=== PATIENT | male | born 1995 | race Caucasian/White ===

== ENCOUNTER 2018-05-01 22:05 | Emergency (ER) | payer SELFPAY ==
[~2018-05-01] VITALS: Ht 180.3 cm; Wt 65.0 kg
[~2018-05-01 22:05] MED LIST: BENTYL10 MG PO; BOOSTRIX IM; NAPROSYN500 MG PO; NO HOME MEDS; VENTOLIN HFA IN
[2018-05-01 23:25] LABS: HEMATOCRIT 44.4 % (39.0-50.0); HEMOGLOBIN 15.1 g/dl (14.0-18.0); IMMATURE GRANULOCYTES 0.3 % (0.0-5.0); MEAN CORPUSCULAR HGB 29.6 pG CALC (26.0-32.0); NEUT# 8.71 thou/uL (1.82-7.42); RED BLOOD COUNT 5.1 mill/uL (4.70-6.10); RED CELL DISTRI WIDTH 13.7 % (11.5-15.5)
[2018-05-01 23:30] LABS: MEAN CELL VOLUME 87.1 fL CALC (80.0-100.0)
[2018-05-01 23:33] LABS: ACT PARTIAL THROMBO TIME 28.6 SECONDS (20.0-32.5); INTERNATIONAL NORMALIZED RATIO 0.9 RATIO (0.7-1.3); PROTHROMBIN TIME 10.4 SECONDS (9.0-12.5)
[2018-05-01 23:42] LABS: ALBUMIN 4.1 g/dL (3.2-5.0); ALKALINE PHOSPHATASE 87 u/l (38-126); ANION GAP 12 (6-22 (CALC)); BILIRUBIN, TOTAL 1.1 mg/dL (0.0-1.4); BUN 11 mg/dL (9-20); BUN/CREATININE RATIO 15 (12-20 (CALC)); CARBON DIOXIDE 28 mmol/l (22-30); CHLORIDE 105 mmol/l (95-108); CREATININE 0.7 mg/dL (0.7-1.3); GFR > 60 ML/MIN (>=60 (CALC)); GFR FOR AFR.AMER. > 60 ML/MIN (>=60 (CALC)); LIPASE 375 u/l (23-300); POTASSIUM 3.8 mmol/l (3.5-5.1); SGOT/AST 16 u/l (17-59); SGPT/ALT 20 u/l (21-72); SODIUM 141 mmol/l (137-146); TOTAL PROTEIN 6.8 g/dL (6.3-8.2)
[2018-05-01 23:54] LABS: MYOGLOBIN 34 ng/mL (0 - 121)
[2018-05-02 01:28] VITALS: BP 112/59
== END 2018-05-02 01:29 | disposition left against medical advice (07) | DRG 313 ==
LOC: ED 22:05
PROVIDERS: Emergency Medicine
DX: R07.9 Chest pain, unspecified (principal); F14.10 Cocaine abuse, uncomplicated; F17.210 Nicotine dependence, cigarettes, uncomplicated; Z91.19 Patient's noncompliance with other medical treatment and regimen

== ENCOUNTER 2019-12-22 | Emergency (ER) | payer SELFPAY ==
[2019-12-22 23:56] LABS: HEMATOCRIT 39.4 % (39.0-50.0); IMMATURE GRANULOCYTES 0.3 % (0.0-5.0); MEAN CELL VOLUME 86.4 fL CALC (80.0-100.0); MEAN CORPUSCULAR HGB 28.7 pG CALC (26.0-32.0); MEAN CORPUSCULAR HGB CONC 33.2 g/dL CAL (32.0-36.0); NEUT# 10.98 thou/uL (1.82-7.42); RED BLOOD COUNT 4.56 mill/uL (4.70-6.10); RED CELL DISTRI WIDTH 13.7 % (11.5-15.5)
[2019-12-22 23:57] LABS: HEMOGLOBIN 13.1 g/dl (14.0-18.0)
[2019-12-23 00:12] LABS: ALBUMIN 4.1 g/dL (3.2-5.0); ALKALINE PHOSPHATASE 87 u/l (38-126); ANION GAP 10 (6-22 (CALC)); BILIRUBIN, TOTAL 0.9 mg/dL (0.0-1.4); BUN 20 mg/dL (9-20); BUN/CREATININE RATIO 22 (12-20 (CALC)); CARBON DIOXIDE 28 mmol/l (22-30); CHLORIDE 103 mmol/l (95-108); CREATININE 0.9 mg/dL (0.7-1.3); GFR > 60 ML/MIN (>=60 (CALC)); GFR FOR AFR.AMER. > 60 ML/MIN (>=60 (CALC)); LIPASE 209 u/l (23-300); POTASSIUM 3.8 mmol/l (3.5-5.1); SGOT/AST 22 u/l (17-59); SODIUM 137 mmol/l (137-146); TOTAL PROTEIN 6.8 g/dL (6.3-8.2)
[2019-12-23 01:34] LABS: URINE BILIRUBIN - DIPSTICK NEGATIVE (NEGATIVE); URINE BLOOD DIPSTICK LARGE (NEGATIVE); URINE COLOR YELLOW; URINE GLUCOSE - DIPSTICK NEGATIVE (NEGATIVE); URINE KETONE 15 mg/dL (NEGATIVE); URINE NITRITE - DIPSTICK NEGATIVE (Negative); URINE PROTEIN - DIPSTICK NEGATIVE (NEG-TRACE); URINE UROBILINOGEN - DIPSTICK 0.2 E.U./dL (0.2)
[2019-12-23 01:53] LABS: URINE BACTERIA MODERATE hpf; URINE EPITHELIAL CELLS MODERATE EPI/hpf (0-FEW); URINE LEUK ESTERASE NEGATIVE (NEGATIVE); URINE RBC >100 RBC/hpf (0-5)
[2019-12-23] MEDS ORDERED: CIPROFLOXACN500 MG PO (02:14)
== END 2019-12-23 02:36 | disposition home or self-care (01) | DRG 392 ==
PROVIDERS: Emergency Medicine
DX: R10.32 Left lower quadrant pain (principal); N34.2 Other urethritis; R31.9 Hematuria, unspecified; F17.210 Nicotine dependence, cigarettes, uncomplicated
CPT/HCPCS: Q9967

== ENCOUNTER 2021-07-22 20:50 | Emergency (ER) | payer OTHER ==
[~2021-07-22] VITALS: Ht 180.3 cm; Wt 65.0 kg
[~2021-07-22 20:50] MED LIST changes: +CIPROFLOXACN500 MG PO
[2021-07-22] MEDS ORDERED: ZPAK PO (22:10)
[2021-07-22] MEDS ORDERED: TESSALON PERLE100 MG PO (22:10)
[2021-07-22 22:23] VITALS: BP 126/74
== END 2021-07-22 22:23 | disposition home or self-care (01) | DRG 203 ==
LOC: ED 20:50
DX: J40 Bronchitis, not specified as acute or chronic (principal); F17.210 Nicotine dependence, cigarettes, uncomplicated; Z20.822 Contact with and (suspected) exposure to COVID-19

== ENCOUNTER 2022-07-14 06:34 | Emergency (ER) | payer OTHER ==
[~2022-07-14] VITALS: Ht 180.3 cm; Wt 65.1 kg
[~2022-07-14 06:34] MED LIST changes: +TESSALON PERLE100 MG PO; +ZPAK PO
[2022-07-14 06:57] LABS: HEMATOCRIT 43.2 % (39.0-50.0); HEMOGLOBIN 14.4 g/dl (14.0-18.0); IMMATURE GRANULOCYTES 0.3 % (0.0-5.0); MEAN CELL VOLUME 87.6 fL CALC (80.0-100.0); MEAN CORPUSCULAR HGB 29.2 pG CALC (26.0-32.0); MEAN CORPUSCULAR HGB CONC 33.3 g/dL CAL (32.0-36.0); NEUT# 4.12 thou/uL (1.82-7.42); RED BLOOD COUNT 4.93 mill/uL (4.70-6.10); RED CELL DISTRI WIDTH 13.6 % (11.5-15.5)
[2022-07-14 06:58] LABS: URINE BILIRUBIN - DIPSTICK NEGATIVE (NEGATIVE); URINE BLOOD DIPSTICK LARGE (NEGATIVE); URINE COLOR YELLOW; URINE GLUCOSE - DIPSTICK NEGATIVE (NEGATIVE); URINE KETONE NEGATIVE (NEGATIVE); URINE LEUK ESTERASE NEGATIVE (NEGATIVE); URINE PROTEIN - DIPSTICK NEGATIVE (NEG-TRACE); URINE SPECIFIC GRAVITY >=1.030; URINE UROBILINOGEN - DIPSTICK 0.2 E.U./dL (0.2)
[2022-07-14 06:59] LABS: URINE NITRITE - DIPSTICK NEGATIVE (Negative)
[2022-07-14 07:09] LABS: URINE MUCUS FEW hpf (NONE-FEW); URINE SQUAMOUS EPITHELIAL CELL FEW EPI/hpf (0-FEW); URINE WBC 0-2 WBC/hpf (0-5)
[2022-07-14 07:20] LABS: ALBUMIN 4.6 g/dL (3.2-5.0); ALKALINE PHOSPHATASE 94 u/l (38-126); ANION GAP 10 (6-22 (CALC)); BUN 11 mg/dL (9-20); BUN/CREATININE RATIO 14 (12-20 (CALC)); CARBON DIOXIDE 27 mmol/l (22-30); CHLORIDE 108 mmol/l (95-108); CREATININE 0.8 mg/dL (0.7-1.3); GFR FOR AFR.AMER. > 60 ML/MIN (>=60 (CALC)); GFR OTHER RACES > 60 ML/MIN (>=60 (CALC)); POTASSIUM 3.8 mmol/l (3.5-5.1); SGOT/AST 29 u/l (17-59); SODIUM 142 mmol/l (137-146); TOTAL PROTEIN 7.2 g/dL (6.3-8.2)
[2022-07-14 07:23] LABS: BILIRUBIN, TOTAL 0.5 mg/dL (0.0-1.4)
[2022-07-14] MEDS ORDERED: KEFLEX500 MG PO (08:47)
[2022-07-14] MEDS ORDERED: DICYCLOMINE HCL20 MG PO (08:47)
[2022-07-14] MEDS ORDERED: PERCOCET 5/325M1 TAB PO (08:47)
[2022-07-14] MEDS ORDERED: ZOFRAN4 MG/TAB PO (08:47)
[2022-07-14 08:54] VITALS: BP 137/89
== END 2022-07-14 09:10 | disposition home or self-care (01) | DRG 694 ==
LOC: ED 06:34
PROVIDERS: Emergency Medicine
DX: N13.2 Hydronephrosis with renal and ureteral calculous obstruction (principal); F17.210 Nicotine dependence, cigarettes, uncomplicated; Z87.442 Personal history of urinary calculi

== ENCOUNTER 2024-05-01 16:45 | Emergency (ER) | payer SELFPAY ==
[2024-05-01] VITALS (11 sets, daily range): BP systolic 106–132; BP diastolic 47–78
[~2024-05-01] VITALS: Ht 180.3 cm; Wt 74.0 kg
[~2024-05-01 16:45] MED LIST changes: +DICYCLOMINE HCL20 MG PO; +KEFLEX500 MG PO; +PERCOCET 5/325M1 TAB PO; +ZOFRAN4 MG/TAB PO
[2024-05-01] MEDS ORDERED: MORPHINE SULFATE 4 MG/ML VIAL IM ONE (17:15)
[2024-05-01] MEDS ORDERED: ONDANSETRON 4 MG/TAB ODT PO ONE (17:15)
[2024-05-01] MEDS ORDERED: TRAMADOL HYDROC50 M1 PO (18:52)
[2024-05-01] MEDS ORDERED: IBUPROFEN600 MG PO (18:52)
== END 2024-05-01 19:19 | disposition home or self-care (01) | DRG 556 ==
LOC: ED 16:45
DX: M25.561 Pain in right knee (principal); F17.200 Nicotine dependence, unspecified, uncomplicated